=== PATIENT | female | born 1995 | race Caucasian/White ===

== ENCOUNTER → 2018-04-16 | Outpatient (CLI) | payer MEDICAID ==
--- NOTE | 2018-04-16 20:40 | RAD ---
EXAM DESCRIPTION: Foot,Left 2 Views CLINICAL HISTORY: PAIN COMPARISON: None. TECHNIQUE: AP, lateral, left foot. IMPRESSION: Normal bone density. No fracture. No abnormal radiodense objects in the soft tissues or joint spaces. Electronically signed by: Ant Kerr MD 04/16/2018 8:39 PM CDT
== END ==
LOC: RAD 17:12
PROVIDERS: ATTEND Nurse Practitioner Family
DX: M79.609 Pain in unspecified limb (principal)